=== PATIENT | female | born 1995 | race Hispanic/Latino ===

== ENCOUNTER 2017-08-16 18:40 | Observation (INO) | payer SELFPAY ==
[2017-08-16 18:40] VITALS: BMI 22.8
[2017-08-16] MEDS ORDERED: Iohexol 240 (50 ml) PO ONE (20:02)
[2017-08-16] MEDS ORDERED: Sodium Chloride 0.9% 1,000 ML IV STA (20:02)
[2017-08-16] MEDS ORDERED: Iohexol 240 (50 ml) ONE (20:07)
--- NOTE | 2017-08-16 20:26 | ED PDOC ---
HPI: Abdomen Time Seen by Provider: 08/16/17 19:15 Chief Complaint (Nursing): GI Problem Chief Complaint (Provider): Vomiting, abdominal pain History Per: Patient History/Exam Limitations: no limitations Onset/Duration Of Symptoms: Hrs (12) Outside of [place] travel?: No Current Symptoms Are (Timing): Still Present Location Of Pain/Discomfort: RLQ Quality Of Discomfort: "Pain" Associated Symptoms: Vomiting Additional Complaint(s): The patient is a 22yo female, with pmhx of mild muscular dystrophy, hereditary hypercholesterolemeia (not currently on medications), presents to the ED for evaluation of vomiting and right lower quadrant abdominal pain present for the past day. She reports associated weakness, bodyaches, fever, and diarrhea. She denies any urinary symptoms. She offers no additional medical complaints. Past Medical History Reviewed: Historical Data, Nursing Documentation, Vital Signs Vital Signs: Last Vital Signs Temp 98.6 F 08/17/17 03:12 Pulse 96 H 08/17/17 03:12 Resp 16 08/17/17 03:12 BP 106/73 08/17/17 03:12 Pulse Ox 99 08/17/17 03:12 - Medical History PMH: Cardia Arrhythmia, Hypercholesterolemia (from young age) Denies: Chronic Kidney Disease - Surgical History Surgical History: No Surg Hx - Family History Family History: States: Other - Immunization History Hx Tetanus Toxoid Vaccination: Yes Hx Influenza Vaccination: Yes Hx Pneumococcal Vaccination: Yes - Home Medications Home Medications: Ambulatory Orders Medication Instructions Recorded Lidocaine 2% Viscous 1 drop MM QID PRN #15 ml 04/06/16 - Allergies Allergies/Adverse Reactions: Allergies Allergy/AdvReac Type Severity Reaction Status Date / Time No Known Allergies Allergy Verified 04/06/16 17:22 Review of Systems ROS Statement: Except As Marked, All Systems Reviewed And Found Negative Constitutional: Positive for: Weakness, Malaise. Negative for: Fever Gastrointestinal: Positive for: Nausea, Vomiting, Abdominal Pain. Negative for : Diarrhea Genitourinary Female: Negative for: Dysuria, Frequency, Hematuria Physical Exam - Reviewed Nursing Documentation Reviewed: Yes Vital Signs Reviewed: Yes - Physical Exam Appears: Positive for: Non-toxic. Negative for: In Acute Distress Head Exam: Positive for: ATRAUMATIC, NORMAL INSPECTION, NORMOCEPHALIC Skin: Positive for: Warm Eye Exam: Positive for: EOMI, PERRL Neck: Positive for: Supple Cardiovascular/Chest: Positive for: Regular Rate, Rhythm Respiratory: Positive for: Normal Breath Sounds. Negative for: Respiratory Distress Gastrointestinal/Abdominal: Positive for: Soft, Tenderness (right lower quadrant tenderness) Neurologic/Psych: Positive for: Alert, Oriented - Laboratory Results Result Diagrams: 08/16/17 20:31 08/16/17 20:31 - ECG O2 Sat by Pulse Oximetry: 100 (RA) Pulse Ox Interpretation: Normal Medical Decision Making Medical Decision Making: Impression: Abdominal pain and vomiting Plan: -- Labs -- IV Fluids -- Pepcid 20 mg -- Zofran 4mg -- CT AP w/ IV & PO contrast [facility] Preliminary Radiology Report Call: [phone] assistance Online chat: [email or web address] Patient Name: PORFIRIO CHERY (Age): 1995 22 Gender: F Date of Exam: 08/16/2017 Referring Physician: Carmela Hester # of Images: [phone] Ordered As: CT ABD PELVIS PO IV CONTRAST Page 1 of 2 EXAM: CT Abdomen and Pelvis With Intravenous Contrast EXAM DATE/TIME: Exam ordered 08/16/2017 8:02 PM CLINICAL HISTORY: 22 years old, female; Pain and signs and symptoms; Nausea and other: Weakness; Abdominal pain; Localized; Right lower quadrant (rlq); Additional info: Right sided abd pain TECHNIQUE: Axial computed tomography images of the abdomen and pelvis with intravenous contrast. All CT scans at this facility use one or more dose reduction techniques, viz.: automated exposure control; ma/kV adjustment per patient size (including targeted exams where dose is matched to indication; i.e. head); or iterative reconstruction technique. Coronal and sagittal reformatted images were created and reviewed. CONTRAST: 90 mL of [id number] administered intravenously. COMPARISON: No relevant prior studies available. FINDINGS: Lower thorax: The visualized portions of the lung bases are normal. ABDOMEN: Liver: There are no focal liver lesions present. Gallbladder and bile ducts: The gallbladder is normal. There is no evidence of biliary ductal dilation. No calcified stones. Pancreas: The pancreas is normal. No ductal dilation. Spleen: The spleen is normal. Adrenals: The adrenal glands are normal. Kidneys and ureters: There is mild RIGHT hydroureteronephrosis. No obstructing ureteral calculus is identified; clinical correlation is advised. The left kidney is normal. Stomach and bowel: The stomach is normal. The duodenum is unremarkable. The colon is normal. There is no evidence of intestinal perforation or obstruction. No mucosal thickening. Appendix: A normal appendix is identified. PELVIS: Bladder: There is nonspecific bladder wall thickening. This may be related to incomplete distention. Reproductive: There is a 2.7 cm RIGHT ovarian cyst. The uterus is normal. ABDOMEN and PELVIS: Intraperitoneal space: There is a small amount of free pelvic fluid present. No free air. Bones/joints: No acute fracture. No dislocation. Soft tissues: Normal. Vasculature: Normal. No abdominal aortic aneurysm. Lymph nodes: Normal. No enlarged lymph nodes. IMPRESSION: 1. There is a 2.7 cm RIGHT ovarian cyst. 2. There is mild RIGHT hydroureteronephrosis. No obstructing ureteral calculus is identified; clinical correlation is advised. Thank you for allowing us to participate in the care of your patient. Dictated and Authenticated by: Manjeet Lopez MD 08/17/2017 12:17 AM Eastern Time ([place] & [place]) Discussed imaging with patient. She is feeling better and comfortable going home. All questions answered. Discharge and follow up instructions given. Scribe Attestation: Documented by Mary Jameson, acting as a scribe for Carmela Hester MD. Provider Scribe Attestation: All medical record entries made by the Scribe were at my direction and personally dictated by me. I have reviewed the chart and agree that the record accurately reflects my personal performance of the history, physical exam, medical decision making, and the department course for this patient. I have also personally directed, reviewed, and agree with the discharge instructions and disposition. Disposition - Clinical Impression Clinical Impression: Ovarian cyst - Patient ED Disposition Is Patient to be Admitted: No Doctor Will See Patient In The: Office Counseled Patient/Family Regarding: Studies Performed, Diagnosis, Need For Followup - Disposition Disposition: Routine/Home Disposition Time: 00:05 Condition: IMPROVED
[2017-08-16 20:38] LABS: BASO % 0.2 % (0.0-2.0); EOS % 0.1 % (0.0-4.0); HEMATOCRIT 35.5 % (34.0-47.0); LYMPH # 0.6 K/uL (1.0-4.3); LYMPH % 6.9 % (20.0-40.0); MEAN CELL VOLUME 82.4 fl (81.0-99.0); MEAN CORPUSCULAR HEMOGLOBIN 26.6 pg (27.0-31.0); MEAN CORPUSCULAR HGB CONC 32.2 g/dL (33.0-37.0); MEAN PLATELET VOLUME 10.4 fl (7.2-11.7); MONO # 0.3 K/uL (0.0-0.8); MONO % 3.2 % (0.0-10.0); NEUT % 89.6 % (50.0-75.0); PLATELET COUNT 187 K/uL (130-400); RED CELL DISTRIBUTION WIDTH 14.4 % (11.5-14.5)
[2017-08-16 20:49] LABS: ALB/GLOB RATIO 1.6 (1.0-2.1); ALKALINE PHOSPHATASE 74 U/L (38-126); ALT/SGPT 37 U/L (9-52); AST/SGOT 31 U/L (14-36); BILIRUBIN,TOTAL 0.6 mg/dl (0.2-1.3); BLOOD UREA NITROGEN 14 mg/dl (7-17); CARBON DIOXIDE 21 mmol/L (22-30); CHLORIDE 99 mmol/L (98-107); GFR AFRICAN-AMERICAN > 60; GLUCOSE,RANDOM 88 mg/dL (65-105); LIPASE 62 U/L (23-300); POTASSIUM 3.6 MMOL/L (3.6-5.0); SODIUM 137 mmol/l (132-148); TOTAL PROTEIN 7.8 G/DL (6.3-8.2)
[2017-08-16 21:00] LABS: RBC URINE 3 /hpf (0-3); URINE BACTERIA RARE (<OCC); URINE BILIRUBIN NEGATIVE (NEGATIVE); URINE BLOOD NEGATIVE (NEGATIVE); URINE COLOR YELLOW (YELLOW); URINE GLUCOSE (UA) NEG (Normal); URINE KETONE 80 mg/dL (NEGATIVE); URINE LEUKOCYTE ESTERASE NEG Leu/uL (Negative); URINE PROTEIN NEGATIVE (NEGATIVE); URINE UROBILINOGEN 0.2-1.0 mg/dL (0.2-1.0); WBC URINE 1 /hpf (0-5)
[2017-08-16 21:42] LABS: NEUTROPHIL 85 % (42-75); TOTAL CELLS COUNTED 100
[2017-08-16] MEDS ORDERED: Iohexol 300 100 ML IJ ONE (23:20)
[2017-08-16] MEDS ORDERED: Sodium Chloride 0.9% 50 ML IV ONE (23:20)
[2017-08-17 03:13] VITALS: BP 106/73; PULSE 96; RESP 16; TEMP 98.6
[2017-08-17 04:43] VITALS: O2SAT 100
--- NOTE | 2017-08-17 07:50 | CT ---
PROCEDURE: CT Abdomen and Pelvis with contrast HISTORY: right sided abd pain COMPARISON: None. TECHNIQUE: Contrast dose: Omnipaque 300, 90 cc. Radiation dose: Total exam DLP = 456.19 mGy-cm. This CT exam was performed using one or more of the following dose reduction techniques: Automated exposure control, adjustment of the mA and/or kV according to patient size, and/or use of iterative reconstruction technique. FINDINGS: LOWER THORAX: Unremarkable. LIVER: Unremarkable. No gross lesion or ductal dilatation. GALLBLADDER AND BILE DUCTS: Unremarkable. PANCREAS: Unremarkable. No gross lesion or ductal dilatation. SPLEEN: Unremarkable. ADRENALS: Unremarkable. No mass. KIDNEYS AND URETERS: Unremarkable. No hydronephrosis. No solid mass. VASCULATURE: Unremarkable. No aortic aneurysm. BOWEL: Unremarkable. No obstruction. No gross mural thickening. Limited fecal loading is seen throughout the large bowel. Opacified distal small bowel and proximal to mid large-bowel appears unremarkable. APPENDIX: Normal appendix. PERITONEUM: Unremarkable. No free fluid. No free air. LYMPH NODES: Unremarkable. No enlarged lymph nodes. BLADDER: Unremarkable. REPRODUCTIVE: There is a 2.8 x 1.1 cm cyst the right extrapleural with a probable 1.8 cm cyst at the left. Consider follow-up ultrasonography for additional detail. BONES: No acute fracture. OTHER FINDINGS: None. IMPRESSION: 1. Nonacute abdomen CT. 2. Pelvis section examination sore 4.2 0.8 cm right adnexal cyst and a probable 1.8 cm left adnexal cyst. Follow-up pelvic ultrasonography may be useful further characterization.
== END 2017-08-17 02:29 | disposition home or self-care (01) ==
LOC: H.ER 18:40 → H.EROBSV 23:35
PROVIDERS: ADMIT Emergency Medicine; ATTEND Emergency Medicine
DX: N83.201 Unspecified ovarian cyst, right side (principal); N13.30 Unspecified hydronephrosis; G71.0 Muscular dystrophy; E78.00 Pure hypercholesterolemia, unspecified
CPT/HCPCS: 74177; 80053; 81003; 81025; 83690; 84702; 85025; 87086; 87804; 96374; 99283; G0378; J1885; J2405; J7040; Q9966; Q9967